=== PATIENT | female | born 1975 | race Caucasian/White ===

== ENCOUNTER 2025-01-22 18:57 | Outpatient (CLI) | payer OTHER, SELFPAY ==
--- NOTE | 2025-01-22 19:00 | MR_ITS ---
EXAM: MRI OF THE RIGHT ANKLE WITHOUT CONTRAST CLINICAL INFORMATION: Female, 49 years old, with right ankle heel pain INDICATION: Evaluate posterior tibial tendon, Achilles tendon PRIOR SURGERY: None reported. PLAIN FILMS: Radiograph 01/17/2025 COMPARISONS: No prior MRIs available. TECHNICAL INFORMATION: Using a 1.5T MR scanner and a localizing surface coil: sagittals: PD, T2, STIR coronals: PD, T2 axials: PD, T2FS SEDATION: None. CONTRAST: None. FINDINGS: Osseous structures: No stress/occult fracture or other marrow edema/pathology. There is cortical irregularity and bony spurring along the inferior medial tibiotalar articulation in the region of the deltoid ligament. A small bony fragment is present along the deep fibers of the ligament measuring 7 mm in greatest dimension. Mild marrow and soft tissue edema is noted in the region, as well. Os trigonum: No os trigonum or abnormally prominent Stieda's process. Tarsal coalition: No calcaneonavicular, talocalcaneal or cubonavicular coalition. Tibiotalar joint: Effusion: Physiologic. Ganglion cyst: None. Osteochondral surfaces: No osteochondral abnormality. Loose bodies: No demonstrable loose bodies. Subtalar joint: Effusion: Physiologic. Articular cartilage: No osteochondral abnormality. Tarsal joints: Talonavicular: Unremarkable. Calcaneocuboid: Unremarkable. Naviculocuneiform: Unremarkable. Tarsometatarsal: Unremarkable. Ligaments: Syndesmotic ligaments:?The anterior and posterior inferior tibiofibular syndesmotic ligaments are normal. Lateral ligaments:?The anterior talofibular ligament fibers are markedly heterogeneous and irregular with thickening and fraying. Additional thickening and heterogeneity of the calcaneofibular and posterior talofibular ligaments, although to a lesser degree. Deltoid ligament:?Chronic residua of incomplete deltoid ligament sprain injury. Calcaneonavicular spring ligament:?The superomedial component of the calcaneonavicular spring ligament is grossly intact. Bifurcate and calcaneocuboid ligaments:?Intact lateral calcaneonavicular and medial calcaneocuboid ligaments. The dorsolateral calcaneocuboid ligament is intact. Tendons: Peroneal:?The peroneal tendons are appropriately situated within the retromalleolar groove and the superior peroneal retinaculum is intact. There is tendinosis and splitting tearing of the peroneus brevis between the distal fibula and the distal calcaneus. Peroneus longus is intact. Mild peroneal tenosynovitis. Flexor tendons:?The posterior tibialis, flexor digitorum and flexor hallucis longus tendons are intact. No significant tendinopathy and without tenosynovitis, tendon split or tendon disruption. Extensor tendons:?The anterior tibialis, extensor digitorum longus, and extensor hallucis longus tendons are intact. No significant tendinopathy and without tenosynovitis, tendon split or tendon disruption. Achilles:?Intact, without tendinopathy or tear. No retrocalcaneal or retro- Achilles bursitis. Sinus tarsi:?The sinus tarsi signal is normal. Plantar aponeurosis: There is no abnormal thickening of, abnormal intrasubstance signal involving, or perifascial edema about the plantar aponeurosis. Specifically, the plantar fascia origin appears normal in signal intensity and morphology. Plantar musculature:?The intrinsic foot musculature is normal in bulk and signal intensity without evidence of denervation atrophy. Neurovascular structures and tarsal tunnel: The posterior tibial neurovascular structures appear unremarkable coursing past the ankle and through the tarsal tunnel. IMPRESSION: 1. Chronic residua of deltoid ligament complex sprain injury with small osseous avulsion along the inferior margin of the medial malleolus. Mild marrow and soft tissue edema signal is present in this region. 2. Chronic residua of intermediate to high-grade anterior talofibular and 4 intermediate grade calcaneofibular and posterior talofibular ligament sprain injuries. 3. Tendinosis and splitting tearing of the peroneus brevis between the distal fibula and the distal calcaneus. Peroneus longus is intact. Mild peroneal tenosynovitis. 4. Intact talus and calcaneus without fracture. No osteochondral lesion. 5. Normal Achilles tendon and plantar fascia. KME Electronically signed on 01/23/2025 3:06:00 PM by Yoana Guzman M.D.
== END 2025-01-22 18:58 | disposition home or self-care (01) ==
LOC: MRI 18:57
PROVIDERS: PCP Family Medicine; Visit Provider Physician Assistant
DX: M25.571 Pain in right ankle and joints of right foot (principal); S93.421D Sprain of deltoid ligament of right ankle, subsequent encounter; S93.491D Sprain of other ligament of right ankle, subsequent encounter; M76.71 Peroneal tendinitis, right leg; S86.311D Strain of muscle(s) and tendon(s) of peroneal muscle group at lower leg level, right leg, subsequent encounter; M65.871 Other synovitis and tenosynovitis, right ankle and foot; M24.10 Other articular cartilage disorders, unspecified site
CPT/HCPCS: 73721